=== PATIENT | female | born 1975 | race Hispanic/Latino ===

== ENCOUNTER 2021-10-17 16:01 | Emergency (ER) | payer MEDICAID, SELFPAY | END 2021-10-17 18:32 | disposition home or self-care (01) | LOC: ERS 16:01 | DX: O36.4XX0 Maternal care for intrauterine death, not applicable or unspecified (principal); Z79.899 Other long term (current) drug therapy; Z79.82 Long term (current) use of aspirin | CPT/HCPCS: 76815 ==